=== PATIENT | male | born 1965 | race Caucasian/White ===

== ENCOUNTER 2017-04-16 14:09 | Emergency (ER) | payer OTHER, BC ==
[~2017-04-16] VITALS: Ht 193 cm; Wt 149.7 kg
[~2017-04-16 14:09] MED LIST: ATIVAN1 MG PO; LISINOPRIL-HCT1 EAC1; LISINOPRIL-HCT1 EAC2 PO; NORCO 5-325 TA1 EACH PO; PAMELOR50 MG PO; PROMETHAZINE HC50 MG PO; SIMVASTATIN20 MG PO; VITAMIN D350000 UNIT PO; ZOFRAN ODT4 MG SL
[2017-04-16] MEDS ORDERED: NORTRIPTYLINE H50 MG PO (14:21)
[2017-04-16] MEDS ORDERED: PRILOSEC OTC20 MG (14:21)
[2017-04-16] MEDS ORDERED: NAPROSYN500 MG PO (14:54)
[2017-04-16] MEDS ORDERED: CRUTCH1 EACH (14:55)
== END 2017-04-16 15:15 | disposition home or self-care (01) ==
LOC: ED 14:09
DX: S92.351A Displaced fracture of fifth metatarsal bone, right foot, initial encounter for closed fracture (principal); I10 Essential (primary) hypertension; E78.00 Pure hypercholesterolemia, unspecified; X50.9XXA Other and unspecified overexertion or strenuous movements or postures, initial encounter; Z87.891 Personal history of nicotine dependence; Z90.49 Acquired absence of other specified parts of digestive tract; Z88.0 Allergy status to penicillin; Z79.899 Other long term (current) drug therapy
CPT/HCPCS: 73630; 99283

== ENCOUNTER 2019-08-12 09:18 | Emergency (ER) | payer BC ==
[~2019-08-12] VITALS: Ht 193 cm; Wt 147.9 kg
--- OUTSIDE RECORDS SUMMARY | ~2019-08-12 | XMS | Clinical Summary ---
Demographics + + + | Address | [address] | | | [place] [address] | + + + | Home Phone | | + + + | Preferred Language | Unknown | + + + | Marital Status | | + + + | Restoration Affiliation | Unknown | + + + | Race | White | + + + | Ethnic Group | Not or | + + + Author + + + | Author | [facility] | + + + | Organization | [facility] | + + + | Address | Unknown | + + + | Phone | Unavailable | + + + Support + + +---------+ + | Name | Relationship | Address | Phone | + + +---------+ + | Debra Copeland | ECON | Unknown | | + + +---------+ + Care Team Providers + +------+ + | Care Lime Hide Inspector Name | Role | Phone | + +------+ + | Ehsan Ham DO | PCP | | + +------+ + Source Comments GARY is fully live on both [facility] Ambulatory and [facility] InPatient.[facility] Allergies + + + + + + | Active Allergy | Reactions | Severity | Noted | Comments | | | | | Date | | + + + + + + | Penicillins | | | 07/13/20 | | | | | | 09 | | + + + + + + Medications Not on file Active Problems Not on file Social History + +-------+ +--------+------+ | Tobacco Use | Types | Packs/Day | Years | Date | | | | | Used | | + +-------+ +--------+------+ | Never Assessed | | | | | + +-------+ +--------+------+ + + + | Sex Assigned at | Date Recorded | | | | + + + | Not on file | | + + + + + + + | Job Start Date | Occupation | Industry | + + + + | Not on file | Not on file | Not on file | + + + + + + + + | Travel History | Travel Start | Travel End | + + + + + + | No recent travel history available. | + + Last Filed Vital Signs + + + + + | Vital Sign | Reading | Time Taken | Comments | + + + + + | Blood Pressure | 150/72 | 07/13/2009 12:45 PM | | | | | PST | | + + + + + | Pulse | 60 | 07/13/2009 12:45 PM | | | | | PST | | + + + + + | Temperature | 36.8 C (98.3 F) | 07/13/2009 12:45 PM | | | | | PST | | + + + + + | Respiratory Rate | - | - | | + + + + + | Oxygen Saturation | - | - | | + + + + + | Inhaled Oxygen | - | - | | | Concentration | | | | + + + + + | Weight | 126.1 kg (277 lb | 07/13/2009 12:45 PM | | | | 14.4 oz) | PST | | + + + + + | Height | 195.6 cm (6' 5") | 07/13/2009 12:45 PM | | | | | PST | | + + + + + | Body Mass Index | 32.95 | 07/13/2009 12:45 PM | | | | | PST | | + + + + + Plan of Treatment + + + + + | Health Maintenance | Due Date | Last Done | Comments | + + + + + | Influenza (Flu) | | | | | vaccination (#1) | 9 | | | + + + + + | Pneumococcal | Aged Out | | No longer eligible | | vaccination | | | based on patient's | | | | | age to complete this | | | | | topic | + + + + + Results Not on filefrom Last 3 Months Insurance + +--------+ +--------+ + +------+ | Payer | Benefi | Subscriber | Effect | Phone | Address | Type | | | t Plan | ID | sonido | | | | | | / | | Dates | | | | | | Group | | | | | | + +--------+ +--------+ + +------+ | BLUE CROSS BLUE | BCBS | [phone] | Effect | [phone] | [address] | PPO | | SHIELD | OUT OF | x | son[place] | 8 | [phone] [address] | | | | [place] | | for | | [place], | | | | | | all | | [place] | | | | | | dates | | [address] | | + +--------+ +--------+ + +------+ + +--------+ +--------+ + + | Guarantor Name | Accoun | Relation to | Date | Phone | Billing Address | | | t Type | Patient | of | | | | | | | | | | + +--------+ +--------+ + + | Rian Copeland | Person | Self | [birth year] | [address] | | | al/Fam | | 1966 | [phone] | [place] [address] | | | [place] | | | 7 (Home) | | | | | | | [phone] | | | | | | | 1 (Work) | | + +--------+ +--------+ + + Advance Directives + + + + + | Type | Date Recorded | Patient | Explanation | | | | Driver Examiner | | + + + + + | Advance | | | | | Directives and | | | | | Living Will | | | | + + + + + | Power of | | | | | Electric Hoist Operator | | | | + + + + +
--- OUTSIDE RECORDS SUMMARY | ~2019-08-12 | XMS | Encounter Summary ---
Demographics + + + | Address | [address] | | | [place] [address] | + + + | Home Phone | | + + + | Preferred Language | Unknown | + + + | Marital Status | | + + + | Mosque Affiliation | Unknown | + + + | Race | White | + + + | Ethnic Group | Not or | + + + Author + + + | Author | [facility] | + + + | Organization | [facility] | + + + | Address | Unknown | + + + | Phone | Unavailable | + + + Support + + +---------+ + | Name | Relationship | Address | Phone | + + +---------+ + | Debra Copeland | ECON | Unknown | | + + +---------+ + Care Team Providers + +------+ + | Care Bench Manager Name | Role | Phone | + +------+ + | Ehsan Coyne DO | PCP | | + +------+ + Reason for Visit + + + | Reason | Comments | + + + | New patient | Abdominal pain | | consultation | | + + + Consultation (Routine) +--------+ + + + + + | Status | Reason | Specialty | Diagnoses / | Referred By | Referred To | | | | | Procedures | Contact | Contact | +--------+ + + + + + | Closed | Specialty | Gastroenterol | Diagnoses | Mark Coyne Faculty | | | Services | ogy | Abdominal | DO Ehsan | [address] [address] | | | Required | | pain | [address] | [address] | | | | | Procedures | [place], | Mailcode: | | | | | CONSULT TO | [place] | [facility] | | | | [facility] | [address] | Health and | | | | | [facility] | Phone: | Healing, | | | | | | [phone] | [address] | | | | | | Fax: | [place], [place] | | | | | | [phone] | [address] | | | | | | | Phone: | | | | | | | [phone] | | | | | | | Fax: | | | | | | | [phone] | +--------+ + + + + + Encounter Details +--------+---------+ + + + | Date | Type | Department | Care Team | Description | +--------+---------+ + + + | 07/13/ | Office | Digestive Health | Juan Alberto Williamson | Cyclic vomiting | | 2008 | Visit | Center at [facility] [address] | [address] | syndrome (Primary | | | | [address] | | Dx) | | | | Mailcode: [place] | | | | | | [facility] and | | | | | | [facility], [facility] [address] | | | | | | [place], [place] | | | | | | [address] | | | | | | [phone] | | | +--------+---------+ + + + Social History + +-------+ +--------+------+ | Tobacco [...] recent travel history available. | + + documented as of this encounter Last Filed Vital Signs + + + [...] | | + + + + + documented in this encounter Progress Notes Reny Delgado Md - 07/13/2009 3:50 PM PST Addended by: RENY DELGADO MD on: 2008 Modules accepted: Level of Service eny Delgado Md - 07/13/2009 3:50 PM PSTI have seen and evaluated this patient with the GI Fellow, Dr. Timoteo nguyen. I agree with the assessment and plan as detailed in Dr. Clarke's note. Counseling time: A total of 60 minutes was spent with this patient, of which >50% of the ti me was spent counselling. Reny Delgado MD firmware manager Division of Gastroenterology [facility] Daryl Zarco Juan Alberto [place] 07/12/2009 11:07 PM PSTGastroenterology Initial Clinic Note 07/12/2009 CHIEF COMPLAINT/IDENTIFICATION: Rian Copeland is a 43 y.o. male referred by Dr. Cloud for evaluation of chronic vomiting. PCP: Ehsan COYNE DO [facility]. HISTORY OF PRESENT ILLNESS Rian Copeland is a 43 y.o. male with history of HTN and HLD, who presents for evaluation of chronic episodic vomiting and weight loss. In 2005, for 1-yr of LUQ pain especially afte r fatty meals, RUQ U/S was obtained at that time, which was reportedly normal without gallst ones or evidence of cholecystitis, and a CCK-HIDA scan showed a low GB EF of 4%, which led t o a lap heike with IOC for acalculous cholecystitis. Surgical pathology revealed chronic cho lecystitis. After the surgery, postprandial pain improved dramatically. In mid-2006, he bega n to experience monthly 1-day to 2-wk episodes of daily n/v with "black-green bile", malaise , and dull 9/10 LUQ pain. A PPI had not improved his symptoms, and he was apparently treated empirically with IV hydrocortisone and Phenergan for 'refractory nausea' after Compazine an d Reglan did not help; currently, Zofran provides minimal relief. Medical marijuana has been more helpful than these medications. An abdominal CT in 2007 was reportedly normal. An EGD was performed afterward in 11/25, which showed "hiatal hernia, mild-moderate fine diffuse gas tritis, and a reasonably normal esophagus," and an UGI without SBFT showed "massive reflux d isease and no SBO." He was subsequently admitted to this hospital in 02/25, and a CT abdomen showed "diverticulosis but no active inflammation." He returned to his surgeon in February after discharge, complaining of bilious vomiting mostly in the mornings, and appeared nontoxic an d comfortable. The surgeon was suspicious of gastroparesis, and a gastric emptying study was performed, which per the patient was WNL. He denies any dysphagia, diarrhea/constipation, F /C/NS, or GI bleeding. He has never had colonoscopy. He claims a 100-lb wt loss over 2 yrs u nintentionally, partially due to fear of triggering a vomiting episode. He denies any dietar y or psychological triggers prior to attacks. Summary of prior medical records (personally reviewed today): EGD, 11/25, Dr. Mcgregor, general surgery: mild-moderate fine diffuse gastritis, reasonably nor mal esophagus, hiatal hernia present, normal duodenum and proximal jejenum. CLOtest negative of antrum and proximal stomach. Pathology: A) Proximal jejenum: mild chronic jejunitis with no evidence of celiac disea se. No villous blunting, mild increase in chronic inflammatory cells. B) Antral and proximal stomach: normal C) distal esophagus: normal. MRI Brain, 05/27/09: normal. REVIEW OF SYSTEMS Complete ROS negative per HPI. PAST MEDICAL HISTORY HTN HLD Lap heike 2006 FAMILY HISTORY Father with COPD. Mother with COPD. 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 Rare EtOH, never heavy. Rare tobacco Occasional marijuana MEDICATIONS Lisinopril Prilosec qday Zocor HCTZ Prozac Zofran 8mg PRN ALLERGIES: Allergies not on file PHYSICAL EXAM BP 150/72 | Pulse 60 | Temp(Src) 36.8 C (98.3 F) (Oral) | Ht 1.956 m (6' 5") | Wt 126.0 55 kg (277 lb 14.4 oz) GEN: Pleasant male in NAD, comfortable appearing. HEENT: anicteric, PERRL. COR: RRR, -m. PULM: Clear bilaterally. ABD: Soft, nontender, nondistended. NABS. No HSM. EXT: no clubbing or peripheral edema. SKIN: No jaundice or rashes present. LABS 05/27/09: Na 137, K 4, CO2 28, BUN 19, Cr 1.1, alb 4.3, AST 23, ALT 21, alkphos 66, biliT 0. 5, manohar 36, lip 14, WBC 12.6, HCT 47, plt 326, H. Pylori serology negative, TSH 0.4 WNL, ESR 2, ttG negative, heavy metals negative (Pb, Hg, Ar, Cd), HIV neg, E. histolytica neg, urine PBG and 5-ALA negative. 05/28/09: WBC 11, HCT 38, plt 249 04/05/09: UA bland 11/25: "hepatitis panel negative." ASSESSMENT Mr. Copeland is a 43 year-old man with a 3-year history of episodic vomiting and LUQ abdomina l pain, with symptom-free intervals inbetween episodes. Extensive evaluation with abdominal CT scans, brain MRI, EGD, UGI, and gastric emptying study have been entirely normal. This pr esentation is strongly suggestive of cyclic vomiting syndrome, which has physiologic overlap with migraine headaches and abdominal migraine syndromes. A considerably less likely possib ility is adrenal insufficiency ([place]'s syndrome) which should also be excluded. The cornerstone of CVS management involves reduction of triggers, prophylactic medications, and abortive medications. Although 80% of CVS patients exhibit triggers for these attacks, Mr. Copeland has not identified a trigger on detailed history today. Therefore, treatment will be primarily pharmacologic. We will ask his PCP to make several medication changes in addit sonido fashion, and follow-up with the patient by telephone 6-8 wks after institution of therap y. If there is no improvement, would at that time consider a repeat EGD as this was last per formed almost 2 yrs prior. Fi RECOMMENDATIONS: 1. Please send AM total cortisol level to exclude for adrenal insufficiency. 2. Encouraged frequent small meals throughout the day, with daily weight monitoring. 3. CVS prophylaxis: Recommend discontinuing Prozac, and starting nortriptyline, titrated a ggressively up to 100-150 mg qHS; if minimal benefit, consider substituting propanolol for o ne of his antihypertensive medications (D/C HCTZ or lisinopril). 4. CVS abortive medication: Continue PRN Zofran (may give sublingual version if unable to tolerate PO due to nausea), and start Ativan 0.5-1 mg PRN, to be take during the prodromal p eriod before onset of attack. If no benefit with Zofran + Ativan, would start PRN Imitrex in tranasal or SC, also used during prodromal period. 5. Will follow-up with patient by telephone in ~8 weeks and determine need for GI clinic f /u at that time. Thank you for this consult. This plan was discussed and formulated with GI attending, Dr. Elza villatoro. Juan Alberto Williamson M.D. Fellow, Gastroenterology/Hepatology Pgr [id number] signed by Juan Alberto Williamson Md at 07/13/2009 2:39 PM PSTdocumented in this encounter Plan of Treatment Not on filedocumented as of this encounter Procedures + +--------+ + + + | Procedure Name | Priori | Date/Time | Associated Diagnosis | Comments | | | ty | | | | + +--------+ + + + | LAB REPORTS | | 07/13/2009 | | Results for this | | | | 2:28 PM | | procedure are in the | | | | PST | | results section. | + +--------+ + + + | PATHOLOGY | | 07/13/2009 | | Results for this | | | | 2:28 PM | | procedure are in the | | | | PST | | results section. | + +--------+ + + + | RADIOLOGY | | 03/01/2009 | | Results for this | | | | 12:00 AM | | procedure are in the | | | | PDT | | results section. | + +--------+ + + + documented in this encounter Results PATHOLOGY (07/13/2009 2:28 PM PST) + + + | Narrative | Performed At | + + + | | | + + + + + | Procedure Note | + + | Nely Hinton - 12/03/2007 12:00 AM PDT | | | + + LAB REPORTS (07/13/2009 2:28 PM PST) + + + | Narrative | Performed At | + + + | | | + + + + + | Procedure Note | + + | Mary Jane Faculty - 05/27/2009 12:00 AM PDT | | | + + RADIOLOGY (03/01/2009 12:00 AM PDT) + + + | Narrative | Performed At | + + + | | | + + + + + | Procedure Note | + + | Nely Hinton - 03/01/2009 12:00 AM PDT | | | + + documented in this encounter Visit Diagnoses + + | Diagnosis | + + | Cyclic vomiting syndrome - Primary Persistent vomiting | + + documented in this encounter
--- OUTSIDE RECORDS SUMMARY | ~2019-08-12 | XMS | Encounter Summary ---
Demographics + + + | Address | [address] | | | [place] [address] | + + + | Home Phone | | + + + | Preferred Language | Unknown | + + + | Marital Status | | + + + | Gnosticism Affiliation | Unknown | + + + [...] Team Providers + +------+ + | Care Painter Airbrush Name | Role | Phone | + [...] | | | | | GASTROENT[facility] | [address] | Health and | | | | | LOGY | Phone: | Healing, | | | | | | [phone] | [address] | | | | | | Fax: | [place], [place] | | | | | | [phone] | [address] | | | | | | | Phone: | | | | | | | [phone] | | | | | | | Fax: | | | | | | | [phone] | +--------+ + + + + + Encounter Details +--------+---------+ + + + | Date | Type | Department | Care Team | Description | +--------+---------+ + + + | 07/13/ | Office | Digestive Health | Juan Alberto Williamsno | Cyclic vomiting | | 2008 | Visit | Center at [facility] [address] | [address] | syndrome (Primary | | | | [address] | | Dx) | | | | Mailcode: [place] | | | | | | [facility] and | | | | | | [facility], [facility] [address] | | | | | | [place], [place] | | | | | | [address] | | | | | | [phone] | | | +--------+---------+ + + + [...] me was spent counselling. Reny Delgado MD community marketing manager Division of Gastroenterology [facility] Daryl Zarco Juan Alberto [place] 07/12/2009 11:07 PM PSTGastroenterology Initial Clinic Note 07/12/2009 CHIEF COMPLAINT/IDENTIFICATION: Rian Copeland is a 43 y.o. male referred by Dr. Cloud for evaluation of chronic vomiting. PCP: Ehsan COYNE DO [facility]. HISTORY OF PRESENT ILLNESS Rian Copeland is [...] with COPD. Mother with COPD. 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 Rare tobacco Occasional [...] less likely possib ility is adrenal insufficiency ([place]'s syndrome) which should also be excluded. The [...] Juan Alberto Williamson M.D. Fellow, Gastroenterology/Hepatology Pgr [id number] signed by Juan Alberto Williamson Md at [...] | Procedure Note | + + | Neyl Hinton - 12/03/2007 12:00 AM PDT | [...]
--- OUTSIDE RECORDS SUMMARY | ~2019-08-12 | XMS | Clinical Summary ---
Demographics + + + | Address | [address] | | | [place] [address] | + + + | Home Phone | | + + + | Preferred Language | Unknown | + + + | Marital Status | | + + + | Pentecostal Affiliation | Unknown | + + + | Race | White | + + + | Ethnic Group | Not or | + + + Author + + + | Author | [facility] | + + + | Organization | [facility] | + + + | Address | Unknown | + + + | Phone | Unavailable | + + + Support + + +---------+ + | Name | Relationship | Address | Phone | + + +---------+ + | Debra Copeland | ECON | Unknown | | + + +---------+ + Care Team Providers + +------+ + | Care Cage Operator Name | Role | Phone | + +------+ + | Ehsan Ham DO | PCP | | + +------+ + Source Comments GARY is fully live on both [facility] Ambulatory and [facility] InPatient.[facility]3] Allergies + + + + + + [...] | x | sonido | 8 | [phone] [address] | | | | STATE | | for | | [place], | | | | | | all | | [place] | | | | | | dates | | [phone] | | + +--------+ +--------+ + +------+ [...] | 1966 | [phone] | [place] [address] | | | [place] | | | 7 (Home) | | | | | | | [phone] | | | | | | | 1 (Work) | | + +--------+ +--------+ + + Advance Directives + + + + + | Type | Date Recorded | Patient | Explanation | | | | Vendor Quality Supervisor | | + + + + + | Advance | | | | | Directives and | | | | | Living Will | | | | + + + + + | Power of | | | | | Adjunct Instructor Chemistry | | | | + + + + +
[~2019-08-12 09:18] MED LIST changes: +CRUTCH1 EACH; +NAPROSYN500 MG PO; +NORTRIPTYLINE H50 MG PO; +PRILOSEC OTC20 MG
[2019-08-12] MEDS ORDERED: ATORVASTATIN CA40 MG PO (09:38)
[2019-08-12] MEDS ORDERED: ATIVAN0.5 MG PO (09:40)
[2019-08-12] MEDS ORDERED: CLINDAMYCIN HC300 MG PO (11:10)
== END 2019-08-12 11:24 | disposition home or self-care (01) ==
LOC: ED 09:18
DX: L03.113 Cellulitis of right upper limb (principal); I10 Essential (primary) hypertension; Z88.0 Allergy status to penicillin; Z88.8 Allergy status to other drugs, medicaments and biological substances; Z79.899 Other long term (current) drug therapy
CPT/HCPCS: 73080; 80053; 83605; 85025; 96374; 99283-25; J3490

== ENCOUNTER 2021-03-16 06:19 | Emergency (ER) | payer BC ==
[~2021-03-16] VITALS: Ht 193 cm; Wt 147.9 kg
[~2021-03-16 06:19] MED LIST changes: +ATIVAN0.5 MG PO; +ATORVASTATIN CA40 MG PO; +CLINDAMYCIN HC300 MG PO
== END 2021-03-16 06:47 | disposition home or self-care (01) ==
LOC: ED 06:19
DX: M79.671 Pain in right foot (principal); M79.89 Other specified soft tissue disorders; I10 Essential (primary) hypertension; E78.00 Pure hypercholesterolemia, unspecified; Z88.0 Allergy status to penicillin; Z88.8 Allergy status to other drugs, medicaments and biological substances; Z79.899 Other long term (current) drug therapy
CPT/HCPCS: 73630; 99283-25

== ENCOUNTER 2021-08-31 12:09 | Emergency (ER) | payer BC ==
[~2021-08-31] VITALS: Ht 193 cm; Wt 164.5 kg
[2021-08-31] MEDS ORDERED: BACTRIM DS TAB1 EACH PO (14:25)
== END 2021-08-31 14:52 | disposition home or self-care (01) ==
LOC: ED 12:09
DX: L03.115 Cellulitis of right lower limb (principal); I10 Essential (primary) hypertension; E78.00 Pure hypercholesterolemia, unspecified; Z88.0 Allergy status to penicillin; Z88.8 Allergy status to other drugs, medicaments and biological substances; Z79.899 Other long term (current) drug therapy
CPT/HCPCS: 73660; 80048; 83605; 85025; 87205; 96365; 99283-25; J0696

== ENCOUNTER 2021-09-12 14:18 | Emergency (ER) | payer BC ==
[~2021-09-12] VITALS: Ht 193 cm; Wt 160.0 kg
[~2021-09-12 14:18] MED LIST changes: +BACTRIM DS TAB1 EACH PO
--- OUTSIDE RECORDS SUMMARY | 2021-09-12 14:24 | XMS ---
PreManage Notification: SOLOMON HARRISON Security Pasta Press Operator Events No recent Security Events currently on file CRITERIA MET - [facility] - 2 Visits in 30 Days CARE PROVIDERS There are no care providers on record at this time. Lori has no Care Guidelines for this patient. [facility] (12 MO.) [facility] NOTE: Visits indicate total known visits. ED/C VISIT TRACKING (12 MO.) [facility]2021 14[facility] [place] [facility] Emergency COMPLAINT: - BODY RASH 08/31/2021 12:11 [place] TYPE: Emergency COMPLAINT: - R LEG SWOLLEN/RED PAINFUL DIAGNOSES: - Essential (primary) hypertension - Cellulitis of right lower limb - Allergy status to other drugs, medicaments and biological substances - Other senior care (current) drug therapy - Allergy status to penicillin - Pure hypercholesterolemia, unspecified - Other specified soft tissue disorders 03/16/2021 06:20 [place] TYPE: Emergency COMPLAINT: - R FOOT PAIN DIAGNOSES: - Essential (primary) hypertension - Other watermelon inspector (current) drug therapy - Pain in right foot - Pure hypercholesterolemia, unspecified - Other specified soft tissue disorders - Allergy status to other drugs, medicaments and biological substances - Allergy status to penicillin INPATIENT VISIT TRACKING (12 MO.) No inpatient visits to display in this time frame [email or web address]
== END 2021-09-12 16:11 | disposition home or self-care (01) ==
LOC: ED 14:18
DX: T80.69XA Other serum reaction due to other serum, initial encounter (principal); T50.Z95A Adverse effect of other vaccines and biological substances, initial encounter; I10 Essential (primary) hypertension; E78.00 Pure hypercholesterolemia, unspecified; Z88.0 Allergy status to penicillin; Z88.2 Allergy status to sulfonamides; Z88.8 Allergy status to other drugs, medicaments and biological substances; Z79.899 Other long term (current) drug therapy
CPT/HCPCS: 99282

== ENCOUNTER 2024-01-31 06:58 | Emergency (ER) | payer BC ==
[~2024-01-31] VITALS: Ht 193 cm; Wt 165.0 kg
[~2024-01-31 06:58] MED LIST changes: +METFORMIN HCL500 M2 PO; +OXYCODONE HCL5 MG PO
[2024-01-31 08:19] LABS: BASOPHILS 0.8 % (0-2); EOSINOPHILS 1.2 % (0-6); HEMATOCRIT 32.5 % (35.0-50.0); HEMOGLOBIN 10.8 g/dL (12.0-18.0); LYMPHOCYTES 11.8 % (24-44); MCH 28.4 (27-36); MCHC 33.4 g/dl (30-36); MONOCYTES 6.5 % (0-12); NEUTROPHILS 79.7 % (39-80); PLATELET COUNT 918 K/uL (140-440); RBC 3.82 M/ul (4.3-5.7)
[2024-01-31 08:36] LABS: ALBUMIN/GLOBULIN RATIO 0.31 (1.1-2.4); ANION GAP 11.9 (7-21); BILIRUBIN, TOTAL 0.8 ng/dL (0.2-1.0); BUN/CREATININE RATIO 18.7 (6.0-28.6); CALCIUM 9.1 mg/dL (8.5-10.1); CREATININE, SERUM 1.39 mg/dL (0.70-1.30); POTASSIUM 3.9 mmol/L (3.5-5.1); PROTEIN, TOTAL 8.4 g/dL (6.4-8.2)
[2024-01-31] MEDS ORDERED: CEPHALEXIN500 M1 PO (09:09)
[2024-01-31] MEDS ORDERED: CEPHALEXIN MONOHYDRATE 500 MG CAP PO ONE (09:15)
[2024-01-31 09:27] VITALS: BP 125/71
[2024-01-31 09:30] LABS: ERYTHROCYTE SEDIMENTATION RATE 144
== END 2024-01-31 09:28 | disposition home or self-care (01) ==
LOC: ED 06:58
PROVIDERS: Emergency Medicine
DX: L03.114 Cellulitis of left upper limb (principal); M25.332 Other instability, left wrist; E11.9 Type 2 diabetes mellitus without complications; E78.00 Pure hypercholesterolemia, unspecified; I10 Essential (primary) hypertension; Z79.84 Long term (current) use of oral hypoglycemic drugs; Z79.899 Other long term (current) drug therapy; Z88.0 Allergy status to penicillin; Z88.2 Allergy status to sulfonamides; Z88.8 Allergy status to other drugs, medicaments and biological substances
CPT/HCPCS: 36415; 73110; 80053; 84550; 85025; 85651; 86140; 99283-25; A9270

== ENCOUNTER 2025-06-09 05:52 | Day surgery (SDC) | payer OTHER ==
[~2025-06-09] VITALS: Ht 193 cm; Wt 136.0 kg
[~2025-06-09 05:52] MED LIST changes: +CEPHALEXIN500 M1 PO; +LACTATED RINGER'S 1,000 ML IV SCH; -PRILOSEC OTC20 MG; +PRILOSEC OTC20 MG PO
[2025-06-09 06:06] VITALS: BP 130/75
[2025-06-09] MEDS ORDERED: LIDOCAINE HCL 2% 5 ML SDV ONE (06:50)
[2025-06-09] MEDS ORDERED: IBLOOD GLUCOSE TEST STRIP 1 EA TEST VI PRN (07:00)
[2025-06-09] MEDS ORDERED: LIDOCAINE HCL 1% 5 ML SDV INJ ONE (07:00)
--- NOTE | 2025-06-09 08:34 | NUR ---
06/09/25 0834 Venita Jacobs 0820: PT ARRIVES TO PACU DROWSY, BUT AWAKE. REPROT RECEIVED FROM KEY ENTRY OPERATOR AND ELECTRONIC COMMERCE SPECIALIST. PT IS PASSING GAS IMMEDIATELY. ZANDER 0823: PT WAKES ENOUGH TO REPORT THAT HE SOILED HIMSELF. A ZEV IS PLACED UNDER HIM. HE IS GIVEN CLEAN, WARM BLANKETS. HE CONTINUES TO PASS GAS. HE ROLLS HIMSELF TO HIS BACK AND THE HEAD OF THE BED IS ELEVATED.
[2025-06-09 08:46] VITALS: BP 160/76
--- NOTE | 2025-06-10 11:05 | OR ---
[facility] [address] [place] [address] Signed DATE OF OPERATION: 06/09/2025 SURGEON: Sylvia Dumont DO PREOPERATIVE DIAGNOSIS: Unexplained anemia. POSTOPERATIVE DIAGNOSIS: Unexplained anemia with sigmoid diverticulosis. PROCEDURE PERFORMED: Pancolonoscopy. ANESTHESIA: IV sedation. ESTIMATED BLOOD LOSS: None. DRAINS: None. COMPLICATIONS: None. DESCRIPTION OF PROCEDURE: The patient was brought to the GI lab and placed in the supine position. After induction of IV sedation, the patient was placed in the left lateral position, padded to the satisfaction of anesthesia. Olympus video colonoscope was then introduced into the anus through the rectum and while under direct visualization and insufflation of the lumen of the bowel, the scope was advanced from the rectosigmoid, sigmoid colon, descending colon, transverse colon, ascending colon into the cecum. The colon was then further insufflated and further exploration was carried out. The scope was withdrawn. Mucosal surfaces were evaluated. The cecum and ascending colon were without lesions or ulceration. No intrinsic or extrinsic masses were noted. The colonoscope was then brought back past the splenic flexure into the transverse colon. Scattered diverticula were noted but no active bleed was present. No other intrinsic or extrinsic masses were noted. The scope was then brought past the splenic flexure, the descending colon. Some scattered diverticula were noted but no other intrinsic or extrinsic masses were noted. Scope was then brought back in the sigmoid colon. Some scattered diverticulum Electronically Signed By: SYLVIA DUMONT DO 06/10/25 1105 PATIENT NAME: SOLOMON HARRISON OPERATIVE REPORT DATE OF : 69 REPORT #: [id number] PHYSICIAN: SYLVIA DUMONT DO PCP: MORIS HUBBARD PAC REPORT IS CONFIDENTIAL AND NOT TO BE RELEASED WITHOUT AUTHORIZATION [facility] [address] [place], [place] [address] Signed nonbleeding were noted, but no other intrinsic or extrinsic masses were appreciated. Scope was brought back to the rectosigmoid. Again, some nonbleeding diverticula were noted. No other intrinsic or extrinsic masses were appreciated. Scope was brought back into the rectum. Rectum was unremarkable. Scope was withdrawn. The patient tolerated the procedure well, went to recovery room in satisfactory condition. 59-year-old male seen with unexplained anemia with his colonoscopy. We will repeat his colonoscopy again in five years or sooner as needed. DO ANGIE Cast/MARINA /[id number] Copies: ~ Electronically Signed By: SYLVIA DUMONT DO 06/10/25 1105 PATIENT NAME: SOLOMON HARRISON OPERATIVE REPORT DATE OF : 69 REPORT #: [id number] PHYSICIAN: SYLVIA DUMONT DO PCP: MORIS HUBBARD PAC REPORT IS CONFIDENTIAL AND NOT TO BE RELEASED WITHOUT AUTHORIZATION
== END 2025-06-09 08:59 | disposition home or self-care (01) ==
LOC: DS 05:52
PROVIDERS: ATTEND Surgery
PROC: 0DJD8ZZ Inspection of Lower Intestinal Tract, Via Natural or Artificial Opening Endoscopic (ICD-10-PCS; principal; 2025-06-09 07:30)
DX: K57.30 Diverticulosis of large intestine without perforation or abscess without bleeding (principal); D64.9 Anemia, unspecified; I10 Essential (primary) hypertension; E78.5 Hyperlipidemia, unspecified; Z88.2 Allergy status to sulfonamides; Z79.899 Other long term (current) drug therapy
CPT/HCPCS: 00811; J2003; J2704; J7121